=== PATIENT | female | born 1945 | race Two or more races ===

== ENCOUNTER 2024-12-26 15:41 | Outpatient (CLI) | payer OTHER, MEDICAID ==
--- NOTE | 2024-12-29 13:55 | DVHSR ---
APPROVED REPORT EXAM: LIMITED Two-dimensional and M-mode echocardiogram with Doppler and color Doppler. DIMENSIONS LVDd4.5 (3.8-5.7cm)LA (2D)3.6 (1.9-4.0cm)Aortic Root2.8 (2.0-3.7cm) LVDs3.3 (2.5-4.0cm)LA (MM) (1.9-4.0cm)Aortic Cusp Exc1.7 (1.5-2.0cm) EF (%) 55.0 (55-70%)Rt. Atrium3.9 (1.9-4.0cm)Asc. Aorta cm IVSd0.9 (0.7-1.1cm)RV (D) (1.8-2.4cm) PWd0.9 (0.7-1.1cm) Mitral Valve MitralMitral Stenosis E wave1.00m/sMV Mean GR.mmHg A wave0.70m/sMV Peak GR.mmHg E/A ratio1.42D MVAcm2 Aortic Valve Aortic ValveAortic Stenosis V11.10m/Aly Mean GR.11mmHg V22.30m/Aly Peak GR.22mmHg LVOT Diameter2.1 (1.8-2.4cm)Doppler AVA1.66cm2 AI P 1/2 Atez117.07ms LEFT VENTRICLE The left ventricle is normal size. The left ventricle is normal in structure and function. The Ejection Fraction is within normal limits. RIGHT VENTRICLE The right ventricle is normal size. ATRIA The left atrial size is normal. The right atrium size is normal. The interatrial septum is intact with no evidence for an atrial septal defect. MITRAL VALVE The mitral valve is normal in structure and function. There is no mitral valve regurgitation noted. PULMONIC VALVE The pulmonic valve is not well visualized. TRICUSPID VALVE The tricuspid valve is grossly normal. AORTIC VALVE The aortic valve opens well. There is moderate aortic regurgitation. GREAT VESSELS The aortic root is normal size. PERICARDIAL EFFUSION There is a small pericardial effusion. Conclusion MOD AI EF >55%
== END 2024-12-26 17:00 | disposition home or self-care (01) ==
LOC: Rad HDHVI 15:41
PROVIDERS: ATTEND Internal Medicine Cardiovascular Disease
DX: I35.1 Nonrheumatic aortic (valve) insufficiency (principal); I31.39 Other pericardial effusion (noninflammatory); R07.9 Chest pain, unspecified
CPT/HCPCS: 93306

== ENCOUNTER 2025-02-11 09:55 | Outpatient (CLI) | payer OTHER, MEDICAID ==
[2025-02-11 10:10] VITALS: BP 150/71; PULSE 61; RESP 16; O2SAT 97
[2025-02-11 10:23] VITALS: BP 161/65; PULSE 59; RESP 16; O2SAT 97
[2025-02-11] MEDS ORDERED: APIX5TAB PO (12:21)
[2025-02-11] MEDS ORDERED: LOSA-535 PO (12:21)
[2025-02-11] MEDS ORDERED: ISOS1TAB28 PO (12:21)
[2025-02-11] MEDS ORDERED: POM (12:21)
[2025-02-11] MEDS ORDERED: POTA-36 PO (12:21)
[2025-02-11] MEDS ORDERED: POLYSOL2 EACHEYE (12:21)
[2025-02-11] MEDS ORDERED: DAPA1TAB4 PO (12:21)
[2025-02-11] MEDS ORDERED: FURO20TA3 PO (12:21)
[2025-02-11] MEDS ORDERED: GABA-339 PO (12:21)
[2025-02-11] MEDS ORDERED: ASPI-543 PO (12:21)
[2025-02-11] MEDS ORDERED: ATOR-47 PO (12:21)
[2025-02-11] MEDS ORDERED: SERT-206 PO (12:21)
--- NOTE | 2025-02-11 14:01 | DVH ---
XY CHEST TWO VIEWS ROUTINE CLINICAL HISTORY: PRE OP CARDIAC CLEARANCE COMPARISON: None TECHNIQUE: Frontal and lateral view of the chest was obtained FINDINGS: Lines and Tubes: None Lungs: No focal consolidation. Pleura: No effusion. No pneumothorax. Cardiomediastinal contours: Unremarkable Bones: No acute osseous abnormality. IMPRESSION: No acute cardiopulmonary disease.
== END 2025-02-11 17:00 | disposition home or self-care (01) ==
LOC: Rad HDHVI 09:55
PROVIDERS: ATTEND Internal Medicine Cardiovascular Disease
DX: Z01.818 Encounter for other preprocedural examination (principal)
CPT/HCPCS: 71046; 93005; G0463

== ENCOUNTER 2025-02-11 10:38 | Emergency (ER) | payer OTHER, MEDICAID ==
[2025-02-11] MEDS ORDERED: LOSA-535 PO (12:21)
[2025-02-11] MEDS ORDERED: POTA-36 PO (12:21)
[2025-02-11] MEDS ORDERED: ASPI-543 PO (12:21)
[2025-02-11] MEDS ORDERED: ISOS1TAB28 PO (12:21)
[2025-02-11] MEDS ORDERED: ATOR-47 PO (12:21)
[2025-02-11] MEDS ORDERED: FURO20TA3 PO (12:21)
[2025-02-11] MEDS ORDERED: POLYSOL2 EACHEYE (12:21)
[2025-02-11] MEDS ORDERED: DAPA1TAB4 PO (12:21)
[2025-02-11] MEDS ORDERED: POM (12:21)
[2025-02-11] MEDS ORDERED: GABA-339 PO (12:21)
[2025-02-11] MEDS ORDERED: APIX5TAB PO (12:21)
[2025-02-11] MEDS ORDERED: SERT-206 PO (12:21)
== END 2025-02-11 11:15 | disposition left against medical advice (07) ==
LOC: ER 10:38
DX: R79.9 Abnormal finding of blood chemistry, unspecified (principal); Z53.21 Procedure and treatment not carried out due to patient leaving prior to being seen by health care provider

== ENCOUNTER 2025-02-12 06:10 | Day surgery (SDC) | payer OTHER, MEDICAID ==
[2025-02-11 11:30] LABS: Hematocrit 41.2 % (36.0-46.0); Hemoglobin 13.9 g/dL (12.2-16.2); Mean Corpuscular Hemoglobin 32.3 pg (28.0-32.0); Mean Corpuscular Volume 95.5 fL (80.0-100.0); Nucleated Red Blood Cells % 0.0 %
[2025-02-11 11:39] LABS: Chloride 107 mmol/L (98-107); Potassium 3.6 mmol/L (3.5-5.1)
[2025-02-11 11:40] LABS: Anion Gap 7 (5-15)
[2025-02-11 11:41] LABS: Calcium 9.3 mg/dL (8.7-10.4)
[2025-02-11 11:45] LABS: INR 0.97 (0.9-1.15); Partial Thromboplastin Time 25.5 SEC (24.5-34.5); Prothrombin Time 10.3 sec (9.3-11.8)
[2025-02-11 11:46] LABS: BUN/Creatinine Ratio 19.7 (10.0-20.0); Blood Urea Nitrogen 14 mg/dL (9-23)
[2025-02-11 11:47] LABS: Carbon Dioxide 32 mmol/L (20-31); Glucose 107 mg/dL (74-106); Sodium 146 mmol/L (136-145)
[2025-02-12] VITALS (8 sets, daily range): BP systolic 130–164; BP diastolic 54–91; PULSE 60; RESP 12–16; O2SAT 93–98
[~2025-02-12 06:10] MED LIST: APIX5TAB PO; ASPI-543 PO; ATOR-47 PO; DAPA1TAB4 PO; FURO20TA3 PO; GABA-339 PO; ISOS1TAB28 PO; LOSA-535 PO; POLYSOL2 EACHEYE; POM; POTA-36 PO; SERT-206 PO
[2025-02-12] MEDS: fentaNYL CITRATE 100 MCG/2 ML VL ONE (07:52)
[2025-02-12] MEDS: VANCOMYCIN HCL 1000 MG VL ONE (07:52)
[2025-02-12] MEDS: LIDOCAINE 2%HCL (LOCAL ANESTH.) INJ 20ML MDV ONE ×3 (07:53→09:11)
[2025-02-12] MEDS: MIDAZOLAM HCL 2MG/2ML 2ml VIAL (1mg/ml) ONE (07:53)
[2025-02-12] MEDS: VANCOMYCIN 1GM/200ML PM 200 ML IV ONE (07:53)
[2025-02-12] MEDS: IODIXANOL 320MG/ML 100ML BTL IV ONE (09:07)
[2025-02-12] MEDS: ceFAZolin 1GM/50ML 50 ML IV ONE (09:54)
--- NOTE | 2025-02-12 10:16 | DVHOP ---
DATE OF SURGERY: 02/12/2025 PROCEDURE PERFORMED: Dual chamber permanent pacemaker. DESCRIPTION OF PROCEDURE: The patient was prepped and draped under sterile condition. 1% Xylocaine was used to anesthetize the left subclavicular region. Conscious sedation was given. Risks and benefits were explained to the patient. Venography was also performed. After the venogram, because of body habitus, we were able to cannulate the axillary vein and left subclavian vein as well. Using a Cook needle, left subclavian vein was engaged with Seldinger technique, a guidewire was then appropriately positioned. Using a 10 blade, a linear incision was made. Using blunt dissection, electrocautery pocket was then dissected out. Using a 9-Armenian sheath, right ventricular active fixation lead then appropriately positioned, threshold parameters obtained. Lead was secured to the chest crowder using 0 Ethibond. Similarly, using a 7-Armenian peel-away sheath, right atrial active fixation lead then appropriately positioned. Threshold parameters obtained. Lead was secured to the chest wall using 0 Ethibond. Generator was implanted. Pocket was irrigated using vancomycin saline solution. Pocket was closed using 3-0 Monoderm subcutaneous sutures followed by 3-0 Monoderm subcuticular sutures. There were no complications. The patient tolerated the procedure well. RESULTS: The patient had Biotronik MRI compatible dual chamber permanent pacemaker, Amvia Edge DR-T, model number [id number], serial number [id number]. RV lead is Solia S53, model number 409415, serial number [id number]. Atrial lead is Solia S45, model number [id number], serial number [id number]. Threshold parameters atrium, P-wave amplitude of 2.5 millivolts, threshold of 1 volt at 0.4 milliseconds pulse duration, pacing impedance of 540 ohms. Right ventricular lead R-wave amplitude of 6.0 millivolts, threshold of 0.5 volts at 0.4 milliseconds pulse duration, pacing impedance of 580 ohms. CONCLUSION: The patient has successful implantation of Medtronic MRI compatible dual chamber permanent pacemaker. Darwin Costa MD SA/JANEY TID: [id number] RECEIPT: [id number]
--- NOTE | 2025-02-12 10:21 | DVHDS ---
DATE OF DISCHARGE: 02/12/2025 DISCHARGE DIAGNOSES: * Hypertension. * Hyperlipidemia. * Sick sinus syndrome. * AV kathi dysfunction with marked bradycardia. * Sinus node dysfunction as well. The patient now underwent a successful dual chamber permanent pacemaker Biotronik MRI compatible system. The patient is stable at the time of discharge. DISPOSITION: Home. ACTIVITY: As instructed. DIET: Will be 2 gram sodium diet. FOLLOW-UP: Follow up with me in 1 week. Darwin Costa MD SA/ELIEZER TID: [id number] RECEIPT: [id number]
--- NOTE | 2025-02-12 10:24 | DVH ---
EXAM: XY CHEST PORTABLE HISTORY: S/P PACEMAKER COMPARISON: Chest x-ray dated 02/11/2025. TECHNIQUE: Portable upright AP view of the chest was performed. FINDINGS: There is a new left chest pacemaker. There is mild central interstitial prominence. No pneumothorax o r consolidative infiltrates. The heart is borderline enlarged. The aortic arch is calcific. IMPRESSION: 1. New left chest pacemaker without pneumothorax. 2. Mild central interstitial prominence which may be due to reactive airways disease or mild CHF.
--- NOTE | 2025-02-12 10:26 | DVHHP ---
ADMIT DATE: 02/12/2025 HISTORY OF PRESENT ILLNESS: The patient who is 79 years old with morbidly obese, now presents with signs and symptoms complex of syncopal episode, atrial fibrillation, paroxysmal and sick sinus syndrome with significant pauses noted greater than 2.5 milliseconds. The patient is now to undergo dual chamber permanent pacemaker. Risks and benefits were explained to the patient. PAST MEDICAL HISTORY: Pertinent medical history significant for hypertension, hyperlipidemia, previous history of myocardial infarction in 2006, at least she gives a history. Although stress test and echocardiogram showed preserved left ventricular ejection fraction. She has also a history of peripheral vascular disease. However, no history of any lung disease, no history of tobacco or alcohol use. Denies any previous history of cardiac arrest. She has no history of diabetes. No renal insufficiency. She has no history of congestive heart failure even though she does have shortness of breath and she has been labeled as heart failure. Ejection fraction is normal. CURRENT MEDICATIONS: Include atorvastatin, losartan, Lasix, isosorbide, Farxiga and Eliquis. Eliquis has been held for 5 days in preparation for this procedure. REVIEW OF SYSTEMS: She denies any fever, chills, melena, hematochezia, hematemesis or hemoptysis. No hematuria. Denies any history of CVA in the past. No history of seizure disorder. No history of any movement disorder. She denies any connective tissue disease as well. She has osteoarthritis; however, she is morbidly obese. PHYSICAL EXAMINATION: VITAL SIGNS: Blood pressure is 132/84, pulse of 50 and regular, O2 saturation 98% on room air. HEENT: Pupils are reactive. Funduscopic exam shows no AV nicking. No exudates. No papilledema. Sclerae are anicteric. Extraocular muscles are intact. Oral mucosa moist. Posterior pharynx without exudate. NECK: No JVD appreciated. Carotid pulses are 2+ and symmetrical. Normal upstroke and contour. No cervical adenopathy. No supraclavicular adenopathy. Thyroid is within normal limits. PULMONARY: Clear to auscultation. CARDIOVASCULAR: Regular rate. PMI is not displaced, although it is difficult to palpate because of body habitus. ABDOMEN: Liver about 5 cm of percussion. No epigastric tenderness. No suprapubic tenderness. NEUROLOGIC: Unremarkable. DTRs are 2+ and symmetrical. Cranial nerves 2-12 are within normal limits. ASSESSMENT AND PLAN: Thus patient with sick sinus syndrome, marked bradycardia, AV node dysfunction. The patient is now to undergo dual chamber permanent pacemaker implantation. Risks and benefits were explained to the patient. Darwin Costa MD SA/JUS/MARCY TID: [id number] RECEIPT: [id number]
--- NOTE | 2025-02-16 12:31 | ECG ---
[facility] Test Date: 2025-02-12 Test Time: 10:29:58 Pat Name: MELVIN JORGENSEN Department: Room: Gender: F Mortar Worker: LATONYA : 1945 Requested By: MERY WELLS Order Number: [id number] Reading MD: Uche Delgado Measurements Intervals [place] Rate: 60 P: 0 AL: 0 QRS: 22 QRSD: 170 T: 206 QT: 492 QTc: 492 Interpretive Statements Wide QRS rhythm Nonspecific intraventricular block Electronically Signed On 02-18-2025 13:50:29 PDT by Uche Delgado Please click the below link to view image of tracing.
== END 2025-02-12 12:33 | disposition home or self-care (01) ==
LOC: CATH 06:10
PROVIDERS: ATTEND Internal Medicine Cardiovascular Disease
DX: I49.5 Sick sinus syndrome (principal); I44.30 Unspecified atrioventricular block; E66.01 Morbid (severe) obesity due to excess calories; E78.5 Hyperlipidemia, unspecified; I11.0 Hypertensive heart disease with heart failure; I25.2 Old myocardial infarction; I48.0 Paroxysmal atrial fibrillation; I50.9 Heart failure, unspecified; I73.9 Peripheral vascular disease, unspecified; Z95.0 Presence of cardiac pacemaker; Z88.2 Allergy status to sulfonamides; Z88.8 Allergy status to other drugs, medicaments and biological substances; Z88.6 Allergy status to analgesic agent; Z79.899 Other long term (current) drug therapy
CPT/HCPCS: 33208; 36415; 71045; 80048; 85025; 85610; 85730; 93005; C1785; J0690; J2250; J3010; J3373; J7030; Q9967; 99152; 99153

== ENCOUNTER → 2025-02-16 | Outpatient (CLI) | payer OTHER, MEDICAID ==
--- NOTE | 2025-02-16 15:30 | DVH ---
XY CHEST TWO VIEWS ROUTINE, HISTORY: POST OP SOB COMPARISON: XY CHEST TWO VIEWS ROUTINE on DOS: 02/11/25 XY CHEST TWO VIEWS ROUTINE on DOS: 02/11/25 TECHNICAL DATA: 2 view of the chest was obtained. FINDINGS: Lines and tubes: A cardiac pacer is noted. Cardiomediastinal silhouette: normal Pulmonary vasculature: normal Lung expansion: normal Lung airspace: normal Lung interstitium: normal Pleura: Trace bilateral pleural effusion. Pneumothorax: no Bones: Unremarkable Other: no IMPRESSION: Trace bilateral pleural effusion.
== END | disposition home or self-care (01) ==
LOC: Rad HDHVI 13:59
PROVIDERS: ATTEND Internal Medicine Cardiovascular Disease
DX: R06.02 Shortness of breath (principal); Z98.890 Other specified postprocedural states
CPT/HCPCS: 71046